=== PATIENT | female | born 1995 | race Caucasian/White ===

== ENCOUNTER 2018-07-10 15:04 | Emergency (ER) | payer MEDICAID ==
[2018-07-10 15:35] VITALS: BP 112/62
[2018-07-10] MEDS ORDERED: KETOROLAC TROMETHAMINE 60 MG/2 ML SDV IM ONE (16:11)
--- NOTE | 2018-07-10 16:17 | ER Document Report ---
HPI - HPI Pain Level: 4 Notes: Patient is a 23-year-old female who presents to the ED complaining of swollen lymph node near her left ear over the last couple weeks that is painful with intermittent fevers. Patient states that the pain will exacerbate headaches at times. She is still eating and drinking without difficulties otherwise. No other recent illness. She is urinating normally and having normal bowel movements. Patient denies any . Denies drug allergies or IV drug use. No other concerns or complaints at this time. Denies any headache, head injury, changes in vision/speech/mentation/hearing, URI, sore throat, chest pain , palpitations, syncope, cough, shortness of breath, wheeze, dyspnea, abdominal pain, nausea/vomiting/diarrhea, urinary retention, dysuria, hematuria, or rash. - ROS Systems Reviewed and Negative: Yes All other systems reviewed and negative - REPRODUCTIVE Reproductive: REPORTS: : Past Medical History - Social History Smoking Status: Current Every Day Smoker Family History: None, Reviewed & Not Pertinent Psychiatric Medical History: Reports: Hx Anxiety, Hx Depression - Immunizations Immunizations up to date: Yes Hx Diphtheria, Pertussis, Tetanus Vaccination: Yes Vertical Provider Document - CONSTITUTIONAL Agree With Documented VS: Yes Notes: PHYSICAL EXAMINATION: GENERAL: Well-appearing, well-nourished and in no acute distress. A&Ox4. Answers questions appropriately. Moves comfortably w/o notable distress HEAD: Atraumatic, normocephalic. EYES: Pupils equal round and reactive to light, extraocular movements intact, sclera anicteric, conjunctiva are normal. No nystagmus. ENT: EAC clear b/l. TM's intact b/l without erythema, fluid, or perforation. Nares patent and with clear discharge. oropharynx w/o erythema without exudates. No tonsilar hypertrophy without erythema or exudate. No palatine shift. Uvula midline. No tongue protrusion. No drooling, hoarseness, or airway compromise. Moist mucous membranes. No sinus tenderness. NECK: Normal range of motion. single post auricular lymph adenopathy w/o obvious source noted. + tenderness, mobile. No rigidity/meningismus. LUNGS: Breath sounds clear to auscultation bilaterally and equal. No wheezes rales or rhonchi. No retractions HEART: Regular rate and rhythm without murmurs, rubs, gallops. ABDOMEN: Soft, nontender, nondistended abdomen. No guarding, no rebound. No masses appreciated. Normal bowel sounds present. No CVA tenderness bilaterally. No hepatosplenomegaly. NEUROLOGICAL: Normal speech, normal gait. Normal sensory, motor exams. Cranial nerves grossly intact. PSYCH: Normal mood, normal affect. SKIN: Warm, Dry, normal turgor, no rashes or lesions noted. - INFECTION CONTROL TRAVEL OUTSIDE OF THE [place] IN LAST 30 DAYS: No Course - Re-evaluation Re-evalutation: 07/10/18 16:14 Patient is an afebrile, well-hydrated, 23-year-old female who presents to the ED with adenitis. Patient reports a mild headache at this time. Vitals are acceptable without any significant tachycardia, tachypnea, or hypoxia. PE is otherwise unremarkable for any focal neurological deficits. Cranial nerves grossly intact. Patient is nontoxic appearing and is tolerating p.o. without any difficulties. Patient was in no apparent distress and would laugh on occasion as well. Toradol given IM today. No further labs or imaging warranted at this time. Low suspicion for any meningitis, sepsis, peritonsillar /pharyngeal abscess, respiratory compromise, Johny's, or other emergent systemic condition at this time. Patient is aware this condition can change from initial presentation and she needs to monitor symptoms closely. I will send her home with a prescription for amoxicillin. Conservative measures otherwise for symptoms. Recheck with your PCM in 2-3 days. Patient to schedule an appointment with ENT for further evaluation and management. Return to the ED with any worsening/concerning symptoms otherwise as reviewed in discharge. Patient is in agreement. - Vital Signs Vital signs: Temp Pulse Resp BP Pulse Ox 98.5 F 71 14 112/62 98 07/10/18 15:33 07/10/18 15:33 07/10/18 15:33 07/10/18 15:33 07/10/18 15:33 Discharge - Discharge Clinical Impression: Adenitis Headache Qualifiers: Headache type: unspecified Headache chronicity pattern: acute headache Intractability: not intractable Qualified Code(s): R51 - Headache Condition: Stable Disposition: HOME, SELF-CARE Additional Instructions: Rest, Ice Tylenol/ibuprofen as needed Moist heat and massage may help F/u with your PCP in 3-5 days for a recheck Schedule appointment with ENT for further evaluation and management* Return to the ED with any worsening symptoms and/or development of fever, headache, neck stiffness, worsening pain, drooling, hoarseness, trouble swallowing, chest pain, palpitations, syncope, shortness of breath, trouble breathing, abdominal pain, n/v/d, muscle weakness/paralysis, numbness/tingling, swelling, redness, or other worsening symptoms that are concerning to you. Prescriptions: Amoxicillin Trihydrate [Amoxil 875 mg Tablet] 1 tab PO BID #20 tablet Forms: Smoking Cessation Education Referrals: MARIAH BOUDREAUX MD [Primary Care Provider] - Follow up as needed DIETER ESTRELLA DO [ASSOCIATE] - Follow up in 3-5 days
== END 2018-07-10 17:15 | disposition home or self-care (01) ==
LOC: ER 15:04
DX: I88.9 Nonspecific lymphadenitis, unspecified (principal); R51 Headache; F17.200 Nicotine dependence, unspecified, uncomplicated
CPT/HCPCS: 99283; 96372; J1885